=== PATIENT | male | born 1960 | race Hispanic/Latino ===

== ENCOUNTER 2022-08-09 11:36 | Observation (INO) | payer OTHER ==
[~2022-08-09] VITALS: Ht 167.6 cm; Wt 65.8 kg
[2022-08-09] MEDS ORDERED: ONDANSETRON HCL INJ 2MG/ML 2ML 2 MG/ML VIAL ONE (12:09)
[2022-08-09] MEDS ORDERED: DICYCLOMINE HCL 20 MG/2 ML VIAL IM ONE ×2 (12:09→12:30)
[2022-08-09] MEDS ORDERED: ONDANSETRON HCL INJ 2MG/ML 2ML 2 MG/ML VIAL IV STA (12:17)
[2022-08-09 13:18] LABS: BASOPHILS % 0.2 % (0.0-1.0); EOSINOPHILS % 0.1 % (0.0-6.0); HEMATOCRIT 45.4 % (38.2-49.6); HEMOGLOBIN 15.2 g/dL (14.0-18.0); LYMPHOCYTES # (AUTO) 1.2 (1.0-3.2); LYMPHOCYTES % 11.6 % (18.0-39.1); MEAN CORPUSCULAR HEMOGLOBIN 30.1 pg (28-32); MEAN CORPUSCULAR HGB CONC 33.5 g/dL (31-35); MEAN CORPUSCULAR VOLUME 89.9 fL (81-99); MONOCYTES # (AUTO) 0.5 (0.2-0.8); MONOCYTES % 4.3 % (4.4-11.3); NEUTROPHILS # (AUTO) 8.7 (2.1-6.9); NEUTROPHILS % 83.3 % (38.7-80.0); PLATELET COUNT 296 x10e3/uL (140-360); RED BLOOD COUNT 5.05 x10e6/uL (4.3-5.7); RED CELL DISTRIBUTION WIDTH 13.8 % (11.7-14.4)
[2022-08-09 14:21] LABS: ALBUMIN 3.9 g/dL (3.5-5.0); ALBUMIN/GLOBULIN RATIO 0.9 (0.8-2.0); ANION GAP 16.9 mmol/L (8-16); CALCIUM 9.4 mg/dL (8.4-10.2); CREATININE, SERUM 0.85 mg/dL (0.72-1.25); POTASSIUM 3.9 mmol/L (3.5-5.1)
[2022-08-09] MEDS ORDERED: IOPAMIDOL 370 MG/ML 100 ML INFUS..BTL INJ ONE (14:31)
[2022-08-09] MEDS ORDERED: Morphine 2mg Syringe 2 MG/ML SYR IV PRN (16:30)
[2022-08-09] MEDS ORDERED: ONDANSETRON HCL INJ 2MG/ML 2ML 2 MG/ML VIAL IV PRN (16:30)
[2022-08-09] MEDS: SODIUM CHLORIDE 0.9% 1000ML 1,000 ML IV SCH (16:40)
[2022-08-09 16:53] VITALS: PULSE 71; RESP 20; O2SAT 96
[2022-08-09 16:58] LABS: CLARITY,URINE CLEAR (CLEAR); COLOR,URINE YELLOW (YELLOW); KETONES,URINE 2+ (NEGATIVE); LEUKOCYTE ESTERASE ,URINE NEGATIVE (NEGATIVE); NITRITE,URINE NEGATIVE (NEGATIVE); PROTEIN,URINE DIPSTICK NEGATIVE (NEGATIVE)
[2022-08-09 16:59] LABS: URINE UROBILINOGEN 0.2 mg/dL (0.2 - 1)
[2022-08-09 17:04] LABS: RBC,URINE 0-5 /HPF (0-5)
[2022-08-09 19:30] VITALS: BP 131/78; PULSE 65; RESP 17; TEMP 98.2; O2SAT 99
[2022-08-09 20:00] VITALS: BP 131/78; PULSE 65; RESP 17; TEMP 98.2; O2SAT 99
[2022-08-09 21:00] VITALS: BP 131/78; PULSE 65; RESP 17; TEMP 98.2; O2SAT 99
[2022-08-10] VITALS: BP 120/76; PULSE 60; RESP 17; TEMP 98.8; O2SAT 100
[2022-08-10] MEDS: SODIUM CHLORIDE 0.9% 1000ML 1,000 ML IV SCH ×3 (01:47→16:07)
[2022-08-10 04:00] VITALS: BP 112/71; PULSE 56; RESP 17; TEMP 98.5; O2SAT 100
[2022-08-10 06:17] LABS: BASOPHILS % 0.1 % (0.0-1.0); HEMATOCRIT 41.2 % (38.2-49.6); HEMOGLOBIN 14.3 g/dL (14.0-18.0); LYMPHOCYTES % 12.3 % (18.0-39.1); MEAN CORPUSCULAR HGB CONC 34.7 g/dL (31-35); MEAN CORPUSCULAR VOLUME 83.6 fL (81-99); MONOCYTES # (AUTO) 0.4 (0.2-0.8); MONOCYTES % 5.2 % (4.4-11.3); NEUTROPHILS # (AUTO) 6.9 (2.1-6.9); PLATELET COUNT 156 x10e3/uL (140-360); RED BLOOD COUNT 4.93 x10e6/uL (4.3-5.7); RED CELL DISTRIBUTION WIDTH 12.4 % (11.7-14.4)
[2022-08-10 06:33] LABS: ANION GAP 14.1 mmol/L (8-16); CALCIUM 8.6 mg/dL (8.4-10.2); CREATININE, SERUM 0.85 mg/dL (0.72-1.25); POTASSIUM 4.1 mmol/L (3.5-5.1)
[2022-08-10 07:00] LABS: CHOL/HDL RATIO 4.6 (3.9-4.7); MAGNESIUM 1.7 MG/DL (1.3-2.1)
[2022-08-10 07:24] LABS: THYROID STIMULATING HORMONE 0.487 uIU/mL (0.350-4.940)
[2022-08-10 08:33] VITALS: BP 112/65; PULSE 50; RESP 16; TEMP 97.9; O2SAT 99
[2022-08-10 09:00] VITALS: BP 112/65; PULSE 50; RESP 16; TEMP 97.9; O2SAT 99
[2022-08-10 11:53] VITALS: BP 150/80; PULSE 47; RESP 18; TEMP 97.7; O2SAT 96
[2022-08-10 17:16] VITALS: BP 139/73; PULSE 66; RESP 19; TEMP 97.9; O2SAT 100
== END 2022-08-10 18:09 | disposition home or self-care (01) ==
LOC: ER 12:11 → INTOOBSV 16:27 → ERHOLD 16:27 → MED/SURG3 18:38
PROVIDERS: ADMIT Internal Medicine; ATTEND Internal Medicine
DX: R10.13 Epigastric pain (principal); N20.0 Calculus of kidney; K57.30 Diverticulosis of large intestine without perforation or abscess without bleeding; N40.0 Benign prostatic hyperplasia without lower urinary tract symptoms; Z11.52 Encounter for screening for COVID-19
CPT/HCPCS: 36415 ×2; 74018; 74177; 80048; 80053; 80061; 81001; 83036; 83735; 84443; 85025 ×2; 94799; 99284; G0378 ×2; J0500; J2405; J7030 ×2; Q9967; U0002

== ENCOUNTER 2022-08-31 17:55 | Observation (INO) | payer OTHER ==
[~2022-08-31] VITALS: Ht 167.6 cm; Wt 65.8 kg
[~2022-08-31 17:55] MED LIST: METHOCARBAMOL500 MG MT; NAPROSYN500 MG PO
[2022-08-31 18:17] LABS: BASOPHILS % 0.4 % (0.0-1.0); EOSINOPHILS # (AUTO) 0.1 (0.0-0.4); HEMATOCRIT 40.5 % (38.2-49.6); HEMOGLOBIN 13.4 g/dL (14.0-18.0); LYMPHOCYTES # (AUTO) 1.9 (1.0-3.2); LYMPHOCYTES % 26.5 % (18.0-39.1); MEAN CORPUSCULAR HEMOGLOBIN 29.5 pg (28-32); MEAN CORPUSCULAR HGB CONC 33.1 g/dL (31-35); MONOCYTES # (AUTO) 0.6 (0.2-0.8); MONOCYTES % 7.8 % (4.4-11.3); NEUTROPHILS # (AUTO) 4.5 (2.1-6.9); NEUTROPHILS % 64.2 % (38.7-80.0); PLATELET COUNT 255 x10e3/uL (140-360); RED BLOOD COUNT 4.55 x10e6/uL (4.3-5.7); RED CELL DISTRIBUTION WIDTH 13.7 % (11.7-14.4)
[2022-08-31 18:26] LABS: INR 0.99; PROTHROMBIN TIME 13.7 seconds (11.9-14.5)
[2022-08-31 18:27] LABS: PARTIAL THROMBOPLASTIN TIME 25.4 seconds (23.8-35.5)
[2022-08-31 18:36] LABS: ALBUMIN 3.6 g/dL (3.5-5.0); ALBUMIN/GLOBULIN RATIO 0.9 (0.8-2.0); ANION GAP 12.8 mmol/L (8-16); CALCIUM 8.9 mg/dL (8.4-10.2); CREATININE, SERUM 0.91 mg/dL (0.72-1.25); POTASSIUM 3.8 mmol/L (3.5-5.1)
[2022-08-31] MEDS ORDERED: IOPAMIDOL 370 MG/ML 100 ML INFUS..BTL INJ ONE (18:54)
[2022-08-31] MEDS ORDERED: SODIUM CHLORIDE 0.9% 1000ML 1,000 ML IV ONE (19:00)
[2022-08-31] MEDS: SODIUM CHLORIDE 0.9% 1000ML 1,000 ML IV SCH (23:24)
[2022-09-01 00:54] LABS: HEMATOCRIT 36.2 % (38.2-49.6)
[2022-09-01] MEDS ORDERED: SIMETHICONE 80 MG CHEW PO PRN (03:00)
[2022-09-01] MEDS ORDERED: METOPROLOL TARTRATE INJ 1 MG/ML VIAL IV PRN (03:00)
[2022-09-01] MEDS ORDERED: MELATONIN 3 MG TAB PO PRN (03:00)
[2022-09-01] MEDS ORDERED: ACETAMINOPHEN 325 MG TAB PO PRN (03:00)
[2022-09-01] MEDS: SODIUM CHLORIDE 0.9% 1000ML 1,000 ML IV SCH ×3 (06:20→21:36)
[2022-09-01 07:18] LABS: HEMATOCRIT 37.9 % (38.2-49.6); HEMOGLOBIN 12.2 g/dL (14.0-18.0)
[2022-09-01 13:30] VITALS: BP_SYST 131; BP_SYST 134; BP_DIAS 51; BP_DIAS 85; PULSE 54; PULSE 72; RESP 18; TEMP 99; O2SAT 100; O2SAT 99
[2022-09-01 14:38] LABS: HEMATOCRIT 39.3 % (38.2-49.6)
[2022-09-01 15:58] VITALS: BP 134/81; PULSE 78; RESP 18; TEMP 97.9; O2SAT 100
[2022-09-01 20:00] VITALS: BP 149/74; PULSE 50; RESP 18; TEMP 97.9; O2SAT 100
[2022-09-01] MEDS: TAMSULOSIN HCL 0.4 MG CAP PO SCH (21:36)
[2022-09-01] MEDS ORDERED: BISACODYL 5 MG TAB EC PO ONE (22:15)
[2022-09-02] VITALS (9 sets, daily range): BP systolic 119–151; BP diastolic 70–85; PULSE 51–99; RESP 16–18; TEMP 97.4–98.4; O2SAT 98–99
[2022-09-02 00:26] LABS: HEMATOCRIT 37.2 % (38.2-49.6); HEMOGLOBIN 12.5 g/dL (14.0-18.0)
[2022-09-02] MEDS ORDERED: BISACODYL 5 MG TAB EC PO ONE ×2 (01:30→22:00)
[2022-09-02] MEDS: ONDANSETRON HCL INJ 2MG/ML 2ML 2 MG/ML VIAL IV PRN ×2 (01:36→09:11)
[2022-09-02] MEDS: SODIUM CHLORIDE 0.9% 1000ML 1,000 ML IV SCH ×2 (04:56→15:01)
[2022-09-02] MEDS ORDERED: CITRATE OF MAGNESIA 300ML BOTTLE PO ONE ×2 (05:00→07:00)
[2022-09-02] MEDS ORDERED: PROTONIX40 MG PO (06:58)
[2022-09-02] MEDS ORDERED: FLOMAX0.4 MG PO (06:58)
[2022-09-02 06:59] LABS: HEMATOCRIT 39.1 % (38.2-49.6); HEMOGLOBIN 12.7 g/dL (14.0-18.0)
[2022-09-02 12:38] LABS: HEMATOCRIT 40.9 % (38.2-49.6); HEMOGLOBIN 13.7 g/dL (14.0-18.0)
[2022-09-02] MEDS ORDERED: PROPOFOL IV EMULSION 10 MG/ML 20 ML VIAL ONE (13:00)
[2022-09-02] MEDS ORDERED: HYOSCYAMINE SULFATE 0.5 MG/ML INJ ONE (13:00)
[2022-09-02] MEDS ORDERED: FENTANYL CITRATE/PF 100MCG/2 ML INJ ONE (13:39)
[2022-09-02] MEDS ORDERED: MIDAZOLAM HCL 2 MG/2 ML VIAL ONE (13:39)
[2022-09-02] MEDS ORDERED: METOPROLOL TARTRATE INJ 1 MG/ML VIAL IV ONE (14:10)
[2022-09-02] MEDS ORDERED: METOPROLOL TARTRATE INJ 1 MG/ML VIAL ONE (14:11)
[2022-09-02] MEDS: METOPROLOL TARTRATE 25 MG TAB PO SCH ×2 (15:59→21:00)
[2022-09-02] MEDS: TAMSULOSIN HCL 0.4 MG CAP PO SCH (22:04)
[2022-09-03] VITALS (8 sets, daily range): BP systolic 121–129; BP diastolic 69–79; PULSE 48–62; RESP 16–18; TEMP 97.1–98.4; O2SAT 98–100
[2022-09-03] MEDS: SODIUM CHLORIDE 0.9% 1000ML 1,000 ML IV SCH ×3 (00:38→14:51)
[2022-09-03 06:09] LABS: HEMATOCRIT 35.7 % (38.2-49.6); HEMOGLOBIN 11.5 g/dL (14.0-18.0)
[2022-09-03] MEDS: METOPROLOL TARTRATE 25 MG TAB PO SCH (08:27)
[2022-09-03 12:37] LABS: HEMATOCRIT 37.4 % (38.2-49.6); HEMOGLOBIN 12.5 g/dL (14.0-18.0)
[2022-09-03 14:30] LABS: HEMATOCRIT 33.8 % (38.2-49.6); HEMOGLOBIN 11.2 g/dL (14.0-18.0)
[2022-09-03] MEDS ORDERED: ONDANSETRON ODT4 MG PO (16:14)
[2022-09-03] MEDS ORDERED: SENOKOT8.6 MG PO (16:14)
== END 2022-09-03 18:38 | disposition home or self-care (01) ==
LOC: ER 18:32 → ERHOLD 22:18 → MED/SURG 09-01 12:48
PROVIDERS: ADMIT Internal Medicine; ATTEND Internal Medicine
DX: K92.2 Gastrointestinal hemorrhage, unspecified (principal); K57.30 Diverticulosis of large intestine without perforation or abscess without bleeding; D12.5 Benign neoplasm of sigmoid colon; K64.8 Other hemorrhoids; R19.7 Diarrhea, unspecified; I10 Essential (primary) hypertension; I25.10 Atherosclerotic heart disease of native coronary artery without angina pectoris; N40.0 Benign prostatic hyperplasia without lower urinary tract symptoms; N20.0 Calculus of kidney; K21.9 Gastro-esophageal reflux disease without esophagitis; Z20.822 Contact with and (suspected) exposure to COVID-19; Z79.899 Other long term (current) drug therapy
CPT/HCPCS: 36415 ×4; 45380; 74174; 80053; 83690; 85014 ×3; 85018 ×3; 85025; 85610; 85730; 88305; 99284; C9113 ×4; G0378 ×4; J1980; J2250; J2405; J2704; J3010; J7030 ×4; Q9967; U0002; 45378